=== PATIENT | female | born 1970 | race Caucasian/White ===

== ENCOUNTER 2016-06-11 03:02 | Emergency (ER) | payer OTHER ==
[~2016-06-11] VITALS: Ht 167.6 cm; Wt 163.6 kg
[~2016-06-11 03:02] MED LIST: AMOX-366 PO; CLIN-78 PO; HYDR-4003 PO; LOPE2TAB32 PO; ONDA8TAB10 PO; ONDA8TAB7 PO; Oxycodone/Acetaminophen PO; SULF1TAB7 PO
[2016-06-11 03:07] VITALS: BP 133/90; PULSE 65; RESP 16; O2SAT 96
--- NOTE | 2016-06-11 03:24 | ED.REPORT ---
HPI-General Illness Date of Service Jun 11, 2016 ED Provider: Landry Richards MD Patient is a 45 year old female who was recently in [place] and diagnosed only clinically with Typhoid fever who presents to the ED complaining of ongoing fever, cough, and vomiting that began on May 28. Patient reports ongoing high fevers, accompanied by chills and diaphoresis. She takes Ibuprofen every 6 hours for her fever. The patient states that her symptoms started with a fever, cough, and sore throat. Patient reports a productive cough with white sputum. This was followed by diarrhea and vomiting. The patient states that she was originally started on malaria medications, but was later informed that she actually had Typhoid fever and was started on different medications. Patient was seen at a clinic in [place], who treated her based on her symptoms. She did not have any blood cultures or test to prove what she has. The patient reports ongoing symptoms, with the exception of diarrhea which is now resolved. [place] [facility] She did not notice any mosquito bites. Patient states that at one point she boiled tap water for tea and she is concerned that is where she got Typhoid from. The patient did not have malaria prophylaxis prior to her trip, rationalizing that she had been there many times. Nursing Notes Stated Complaint: HISTORY OF TYPHOID FEVER Chief Complaint: General Complaint Nursing Notes Reviewed: Yes Allergies: Coded Allergies: cephalexin (Verified Allergy, Severe, Rash, 06/11/16) Scheduled Amoxicillin/Clav K 875-125 mg (Augmentin 875-125 mg) 1 Each Tablet 1 EACH PO BID Clindamycin (Clindamycin) 300 Mg Capsule 300 MG PO QID Doxycycline Monohyd (Doxycycline Monohyd) 100 Mg Tablet 100 MG PO BID Sulfamethoxazole/Trimeth 800-160 mg (Bactrim DS) 1 Each Tablet 1 TABLET PO BID Scheduled PRN ([Oxycodone/Acetaminophen]) 1 TAB TABLET 1-2 TAB PO Q6H PRN PRN For Pain Hydrocodone-Acetaminophen 5-325 mg (Hydrocodone-Acetaminophen 5-325 mg) 1 Each Tablet 1-2 TABLET PO Q4H PRN PRN For Pain Loperamide (Loperamide) 2 Mg Tablet 2 MG PO Q4H PRN PRN For Diarrhea or Loose Stool Take one tablet after each episode of diarrhea up to 6 tabs and 24 Ondansetron ODT (Zofran ODT) 8 Mg Tablet 8 MG PO Q4H PRN PRN For Nausea Ondansetron ODT (Ondansetron ODT) 8 Mg Tab.rapdis 8 MG PO Q4H PRN PRN For Nausea General Time Seen by MD: 03:24 Chief Complaint Cough, Fever, Other (possible Typhoid) Hx Obtained From: Patient Arrived By: Walk-in Sudden in Onset?: No Onset Occurred: More than a week ago... (2 weeks) Symptom Duration: Since onset Severity: Maximum: No pain Recent Healthcare: Recent doctor visit Similar Sx Previous: No Past Medical History Past Medical History Notes: Recent travel to [facility] (May 2016) - possible Typhoid/Malaria Past Medical History kidney stones UTIs sleep apnea pancreatitis Past Surgical History Reports: , Cholecystectomy Smoking History Never Smoker Social History Other Social History: Good social support, , Local resident Ambulatory Status Independent Review of Systems Full Review of Systems Constitutional: Reports: Chills, Fever Ears / Nose / Throat: Reports: Sore throat Respiratory: Reports: Non-productive cough, Prod cough, white GI: Reports: Diarrhea, Nausea, Vomiting Skin: Reports Diaphoresis Complete sys rev & neg: except as marked. Physical Exam Vital Signs Vital Signs Date Time Temp Pulse Resp B/P Pulse Ox O2 Delivery O2 Flow Rate FiO2 06/11/16 06:59 36.5 56 16 130/79 94 Room Air 06/11/16 03:07 36.3 65 16 133/90 96 Room Air Initial VS: Reviewed Extremities: Vascular intact, Neuro intact Neurologic: Alert, Oriented, Nonfocal Psychiatric: Mood/affect normal, Behavior normal, Normal thought content General/Constitutional: Awake, Alert, No acute distress Appearance / Presentation: Positive: Obese, morbidly Head / Eyes: Atraumatic, Normocephalic, PERRL ENT: Airway patent Neck: Supple, Full range of motion Respiratory / Chest: Breath sounds NL, Breath sounds = bilat, No respiratory distress, No rales, No rhonchi, No wheezing Cardiovascular: Heart rate NL, Regular rhythm, Heart sounds NL, No murmurs Abdomen: Soft, Non-tender Skin: No rash, Warm Color / Condition: Positive: Diaphoresis present Interpretation & Diagnostics Lab Results Interpretation Result Diagram: 06/11/16 0355 06/11/16 0355 Test 06/11/16 03:55 06/11/16 04:09 06/11/16 04:27 White Blood Count 3.6th/mm3 (3.8-10.1) Red Blood Count 4.69mil/mm3 (3.90-5.20) Hemoglobin 13.5g/dL (12.0-15.6) Hematocrit 39.8% (35.0-46.0) Mean Corpuscular Volume 84.9fL (81-100) Mean Corpuscular Hemoglobin 28.8pg (27.0-35.0) Mean Corpuscular Hemoglobin Concent 33.9% (32.0-37.0) Red Cell Distribution Width 14.5% (12.3-15.4) Platelet Count 162bil/L (150-400) Neutrophils (%) (Auto) 41.3% (40-74) Lymphocytes (%) (Auto) 41.0% (14-46) Monocytes (%) (Auto) 13.2% (4-12) Eosinophils (%) (Auto) 2.8% (0-5) Basophils (%) (Auto) 1.7% (0-3) Prothrombin Time 10.7sec (8.1-12.5) Prothromb Time International Ratio 1.00ratio Activated Partial Thromboplast Time 21.7sec (22.8-33.0) Sodium Level 141mEq/L (134-144) Potassium Level 3.6mEq/L (3.5-5.2) Chloride Level 101mEq/L (97-108) Carbon Dioxide Level 24mmol/L (18-29) Blood Urea Nitrogen 7mg/dL (6-24) Creatinine 0.61mg/dL (0.57-1.00) Estimat Glomerular Filtration Rate 151mL/min (>59) Glucose Level 108mg/dL (60-99) Calcium Level 8.7mg/dL (8.5-10.1) Magnesium Level 1.8mg/dL (1.6-2.6) Total Bilirubin 0.5mg/dL (0.0-1.2) Aspartate Amino Transf (AST/SGOT) 79U/L (0-50) Alanine Aminotransferase (ALT/SGPT) 77U/L (0-32) Alkaline Phosphatase 60U/L (25-150) Pro-B-Type Natriuretic Peptide 61.60pg/mL (0-249) Total Protein 7.4g/dL (6.4-8.4) Albumin 3.5g/dL (3.4-5.0) Procalcitonin 0.08ng/mL (0.00-0.08) Lactic Acid Level 1.2mmol/L (0.4-2.0) Urine Color Dark yellow (YELLOW) Urine Appearance Slightly cloudy Urine pH 6.0 (5.0-8.0) Urine Specific Silvis 1.020 (1.003-1.035) Urine Protein Negativemg/dL (NEG,TRACE) Urine Glucose (UA) Negativemg/dL (NEGATIVE) Urine Ketones Tracemg/dL (NEGATIVE) Urine Occult Blood Small (NEGATIVE) Urine Nitrite Negative (NEGATIVE) Urine Bilirubin Negative (NEGATIVE) Urine Urobilinogen Normalmg/dL (NORMAL) Urine Leukocyte Esterase Moderate (NEGATIVE) Urine RBC 3-10/hpf (0-2) Urine WBC >50/hpf (0-5) Urine Epithelial Cells Many/hpf (NONE-MOD) Urine Crystals None seen (NONE SEEN) Urine Bacteria None/hpf (NONE-FEW) Urine Hyaline Casts None/lpf (NONE) Urine Granular Casts None seen (NONE SEEN) Urine Waxy Casts None seen (NONE SEEN) Urine Red Blood Cell Casts None seen (NONE SEEN) Urine White Blood Cell Casts None seen (NONE SEEN) Urine Mucus Present (None Seen) Urine Trichomonas None seen (NONE SEEN) Urine Yeast None (NONE SEEN) Urine Culture Reflexed Indicated X-Ray Chest Interpretation Chest Xray Interpretation: Impression: No acute cardiopulmonary process. View: AP & lat Interpretation / Wet Read by: Wet read ED physician Re-Eval/Medical Decision Med Decision/Clinical Course 45-year-old with a fever and UTI as well as cough symptoms, presents with reasonable concerns for tropical diseases in the setting of a recent return from [place]. Malaria after her visit to [facility] is relatively unlikely, but typhoid certainly was a possibility. She was unfortunately treated with a plethora of brief courses of antibiotics, rendering diagnosis somewhat difficult. Stools were obtained while here, and submitted for a PCR panel as well as ova and parasites. Initial malaria testing is negative. A malaria smear is pending this morning. Blood cultures are pending. Urinalysis is grossly positive and urine cultures pending. Chest x-ray is negative. She carries a history of some reaction to cephalexin, but actually has taken cephalexin given her by the [place] and [facility] doctor, without apparent reaction. She prefers not to have cephalexin despite the fact that she is probably not allergic. We will begin her alternatively on doxycycline twice a day. Above evaluation is pending. Follow up with PCP. Prompt return if worse. Source of Hx: Old records Time of Eval: 06:35 Patient Status: Condition improved Re-Evaluation/Progress Note: Rechecked the patient. Her chest x-ray was negative. Discussed her lab results, some results are pending still. Her UA was positive for a UTI. Patient provided a stool sample. Patient understands and agrees with the plan to be discharged home. Discharge instructions and follow-up discussed. All questions were addressed. Return to the ED warnings given. Counseled Regarding: Diagnosis, Lab results, Need for follow-up, When/why to return to ED Discharge & Departure Primary Impression: UTI (urinary tract infection) Urinary tract infection type: acute cystitis Hematuria presence: with hematuria Qualified Code: N30.01 - Acute cystitis with hematuria Additional Impression: Fever Fever type: unspecified Qualified Code: R50.9 - Fever, unspecified Disposition: Home Discharge Condition All VS Reviewed: Yes Condition: Stable Patient Instructions: Urinary Tract Infection in Women (ED) Additional Instructions: Begin doxycycline twice daily for ten days. Follow-up with your doctor in the office. Return if you have persistent fevers despite treatment. We have testing pending for malaria, typhoid, and tuberculosis. The initial malaria testing is negative. Referrals: Ileana Whiting CNM (PCP) Carolyn Attestation Portions of this note were transcribed by Corinne Be. I, Dr. Richards personally performed the history, physical exam and medical decision-making; I reviewed and confirmed the accuracy of the information in the transcribed note. Signed by: Carolyn Arizmendi, 06/11/2016 0645 copies to: Ileana Whiting CNM, Christopher W MD Jun 11, 2016 03:24 Corinne Be Jun 11, 2016 03:42
[2016-06-11 04:19] LABS: BASOPHILS % (AUTO) 1.7 % (0-3); EOSINOPHILS % (AUTO) 2.8 % (0-5); MONOCYTES % (AUTO) 13.2 % (4-12); Mean Corpuscular Hemoglobin 28.8 pg (27.0-35.0); Mean Corpuscular Volume 84.9 fL (81-100); NEUTROPHILS % (AUTO) 41.3 % (40-74)
[2016-06-11 05:05] LABS: Platelet Count 162 bil/L (150-400)
[2016-06-11 05:13] LABS: Magnesium 1.8 mg/dL (1.6-2.6)
[2016-06-11 06:16] LABS: APPEARANCE,URINE SLIGHTLY CLOUDY (CLEAR,HAZY); COLOR,URINE DARK YELLOW (YELLOW); OCCULT BLOOD,URINE SMALL (NEGATIVE); UROBILINOGEN,URINE NORMAL (NORMAL)
[2016-06-11] MEDS ORDERED: DOXY-232 PO (06:42)
[2016-06-11 06:59] VITALS: BP 130/79; PULSE 56; RESP 16; O2SAT 94
--- NOTE | 2016-06-11 08:58 | DRSVH ---
PROCEDURE: X-RAY CHEST, TWO VIEWS ([id number]) INDICATIONS: cough, travel to [place] TECHNIQUE: 2 views of the chest were acquired. COMPARISON: [facility], , CHEST 2VW, 09/06/2013, 9:49. FINDINGS: Surgical changes and devices: None. Lungs and pleura: No pleural effusions or pneumothorax. Lungs are clear. Mediastinum: Mediastinal contours are normal. Heart size is normal. Bones and chest wall: No suspicious bony abnormalities. Soft tissues appear unremarkable. IMPRESSION: No acute cardiopulmonary disease process. Dictated by: Winsome Thompson MD, PhD on 06/11/2016 at 8:55 Approved by: Winsome Thompson MD, PhD on 06/11/2016 at 8:56
== END 2016-06-11 06:58 | disposition home or self-care (01) ==
LOC: SED 03:02
DX: N30.01 Acute cystitis with hematuria (principal); R05 Cough; Z87.440 Personal history of urinary (tract) infections; Z87.442 Personal history of urinary calculi; Z88.1 Allergy status to other antibiotic agents

== ENCOUNTER 2016-06-15 18:17 | Emergency (ER) | payer OTHER ==
[~2016-06-15] VITALS: Ht 167.6 cm; Wt 163.6 kg
[~2016-06-15 18:17] MED LIST changes: +DOXY-232 PO
[2016-06-15 18:34] VITALS: BP 137/90; PULSE 90; RESP 20; O2SAT 96
--- NOTE | 2016-06-15 18:50 | ED.REPORT ---
HPI-General Illness Date of Service Jun 15, 2016 ED Provider: Mart Kenny MD 45 year old female presents to the ED due to flu like symptoms for 3 weeks. Symptoms started as sore throat and progressed to dysuria, persistent non- productive cough, nausea, vomiting, fatigue and fever. Pt was seen in the ER 06/11. Pt now has 8/10 neck pain and a headache. Pt has been using ibuprofen with minimal relief. Additionally the patient reports a rash to her lower abd with itching. See note from 06/11/16. Nursing Notes Stated Complaint: SORE THROAT Chief Complaint: FLU/Cold Symptoms Nursing Notes Reviewed: Yes Allergies: Coded Allergies: cephalexin (Verified Allergy, Severe, Rash, 06/11/16) Scheduled Amoxicillin/Clav K 875-125 mg (Augmentin 875-125 mg) 1 Each Tablet 1 EACH PO BID Clindamycin (Clindamycin) 300 Mg Capsule 300 MG PO QID Doxycycline Monohyd (Doxycycline Monohyd) 100 Mg Tablet 100 MG PO BID Sulfamethoxazole/Trimeth 800-160 mg (Bactrim DS) 1 Each Tablet 1 TABLET PO BID Scheduled PRN ([Oxycodone/Acetaminophen]) 1 TAB TABLET 1-2 TAB PO Q6H PRN PRN For Pain Hydrocodone-Acetaminophen 5-325 mg (Hydrocodone-Acetaminophen 5-325 mg) 1 Each Tablet 1-2 TABLET PO Q4H PRN PRN For Pain Loperamide (Loperamide) 2 Mg Tablet 2 MG PO Q4H PRN PRN For Diarrhea or Loose Stool Take one tablet after each episode of diarrhea up to 6 tabs and 24 Ondansetron ODT (Zofran ODT) 8 Mg Tablet 8 MG PO Q4H PRN PRN For Nausea Ondansetron ODT (Ondansetron ODT) 8 Mg Tab.rapdis 8 MG PO Q4H PRN PRN For Nausea General Time Seen by MD: 18:48 Chief Complaint Multip medical complaints Hx Obtained From: Patient Arrived By: Walk-in Sudden in Onset?: No Onset Occurred: More than a week ago... (3 weeks) Symptom Duration: Since onset Location: : Head: Neck Quality: Painful Severity: Current: Moderate Associated with: Reports: Fever, Headache Past Medical History Past Medical History Notes: Recent travel to [place] (May 2016) - possible Typhoid/Malaria Past Medical History kidney stones UTIs sleep apnea pancreatitis Past Surgical History Reports: , Cholecystectomy Smoking History Never Smoker Social History Other Social History: Good social support, , Local resident Ambulatory Status Independent Review of Systems Full Review of Systems Constitutional: Reports: Fatigue, Fever Ears / Nose / Throat: Reports: Sore throat Respiratory: Reports: Non-productive cough, Denies: Shortness of breath GI: Reports: Nausea, Vomiting Female: Reports: Dysuria Musculoskeletal: Reports: Myalgia, Neck pain Skin: Reports Itching, Reports Rash Neurologic: Reports: Headache Complete sys rev & neg: except as marked. Physical Exam Vital Signs Vital Signs Date Time Temp Pulse Resp B/P Pulse Ox O2 Delivery O2 Flow Rate FiO2 06/15/16 20:22 36.7 92 18 132/90 95 Room Air 06/15/16 18:34 36.3 90 20 137/90 96 Room Air Initial VS: Reviewed General/Constitutional: Awake, Alert, Cooperative Head / Eyes: Atraumatic, Normocephalic, PERRL, EOMI ENT: Airway patent, Mucous membranes moist, Pharynx NL Neck: Atraumatic, Supple, Full range of motion Tenderness about trapezius bilat. Respiratory / Chest: Breath sounds NL, Breath sounds = bilat, No respiratory distress, No rales, No rhonchi, No wheezing dry non productive cough Cardiovascular: Heart rate NL, Regular rhythm, Heart sounds NL, No gallop, No murmurs, No rubs, Cap refill not delayed, Peripheral circulation NL Abdomen: Soft, Non-tender, No distention Erythema about lower groin pannus with some overlying excoriations. Skin: Warm, Dry Neurologic: Oriented X3, Speech NL Psychiatric: Affect NL, Mood NL, Cognitive function NL Interpretation & Diagnostics Lab Results Interpretation Test 06/15/16 19:49 Hold Serra Top Tube Received (Received) Re-Eval/Medical Decision Med Decision/Clinical Course 45 year old female presents to the ED due to flu like symptoms for 3 weeks. Symptoms started as sore throat and progressed to dysuria, persistent nonproductive cough, nausea, vomiting, fatigue and fever. She has also had some generalized soreness about the lateral aspect of her neck. The patient was in [place] 05/26/16 to 06/10/16. There she was clinically diagnosed with typhoid fever and has been treated with several courses of antibiotics symptoms have not improved. She has had no sick contacts that she is aware of. She was seen here 06/11/16 and clinically diagnosed with urinary tract infection and was prescribed doxycycline however symptoms have not gotten better. Here in the emergency department she is afebrile with stable vital signs. She has supple neck with full range of motion, clear lungs and head to toe examination which is essentially unremarkable. She is nontoxic in appearance. She has no meningismus. She had an extensive workup here just several days ago (06/11/16) which was reviewed as below: Chest x-ray negative. UA consistent with UTI and pt was prescribed doxycycline. (Cultures from that urinalysis is grown out no single organism and were consistent with a contaminated specimen) Stool PCR negative. Blood cultures with no growth to date. Sputum with no acid fast bacilli TB testing negative. Malaria peripheral smear pending Malaria antigen assay negative. Respiration PCR nasopharyngeal negative. Labs from 06/11/16: CBC unremarkable CMP mildly elevated transaminases- otherwise unremarkable coag studies normal Cause of the patient's presentation is unclear. She is quite well-appearing. Considered sexually transmitted infection such as HIV however she has had no high risk for actual behavior. Discussed with Dr. Subramanian infectious disease. Reviewed her extensive workup thus far. He recommends that we sent blood for dengue fever testing. No further recommendations at this time. He will follow up with her in his clinic. Considered meningitis but this seems quite unlikely. She has supple neck with full range of motion and no meningeal findings. I do not feel that lumbar puncture is indicated. Discussed workup thus far with the patient and findings above. She will call tomorrow to arrange for follow-up with Dr. Subramanian. RETURN precautions were reviewed detail she was discharged in good condition. She will continue the antibiotics previously prescribed a white suspicion for urinary tract infection is relatively low given that urine did not grow any single organism. Source of Hx: Old records Time of Eval: 19:33 Re-Evaluation/Progress Note: Labs drawn. Discussed plan for discharge and follow up with Dr. Subramanian. All questions addressed. Consultation : Referral / Consult Name: Ruiz Subramanian MD Call Returned at: 19:29 Note: Infectious disease- revieed workup. request dengue fever testing and discharge. Counseled Regarding: Diagnosis, Lab results, Need for follow-up, When/why to return to ED Discharge & Departure Primary Impression: Fever Fever type: unspecified Qualified Code: R50.9 - Fever, unspecified Additional Impressions: Myalgia Body aches Cough Dysuria Generalized weakness Fatigue Fatigue type: unspecified Qualified Code: R53.83 - Other fatigue Disposition: Home Discharge Condition All VS Reviewed: Yes Condition: Improved Additional Instructions: Thank you for seeking care at [facility] emergency room. Our primary goal today in the ED was to evaluate you for any life-threatening conditions. Your evaluation was reassuring. We are testing for Dengue fever. You can use hydrocortisone cream for your rash. The infectious disease doctor can see you next week in clinic if your symptoms are persisting. Call the office tomorrow to schedule an appointment. Return to the ER if worse. Thank you for letting us partake in your care today. Referrals: Ileana Whiting CNM (PCP) Ruiz Subramanian MD Scribe Attestation Portions of this note were transcribed by Keshia Caicedo. I, (Dr. Kenny) personally performed the history, physical exam and medical decision-making; I reviewed and confirmed the accuracy of the information in the transcribed note. Signed by: Keshia Caicedo. Davidibe, 06/15/2016, 2206 copies to: Ileana Whiting CNM; Ruiz Subramanian MD, Beck O MD Jun 15, 2016 18:50 Keshia Caicedo Jun 15, 2016 19:28
[2016-06-15 20:22] VITALS: BP 132/90; PULSE 92; RESP 18; O2SAT 95
== END 2016-06-15 20:24 | disposition home or self-care (01) ==
LOC: SED 18:17
DX: R50.9 Fever, unspecified (principal); M79.1 Myalgia; R53.83 Other fatigue; R53.1 Weakness; R30.0 Dysuria; R05 Cough; Z87.440 Personal history of urinary (tract) infections; Z90.49 Acquired absence of other specified parts of digestive tract; Z88.1 Allergy status to other antibiotic agents

== ENCOUNTER 2016-06-20 20:09 | Emergency (ER) | payer OTHER ==
[2016-06-20 20:22] VITALS: BP 139/77; PULSE 61; RESP 16; O2SAT 96
[2016-06-20 21:23] LABS: BASOPHILS % (AUTO) 0.7 % (0-3); EOSINOPHILS % (AUTO) 3.7 % (0-5); MONOCYTES % (AUTO) 12.9 % (4-12); Mean Corpuscular Hemoglobin 28.3 pg (27.0-35.0); Mean Corpuscular Volume 87.1 fL (81-100); NEUTROPHILS % (AUTO) 41.7 % (40-74); Platelet Count 229 bil/L (150-400)
[2016-06-20 21:36] LABS: INR 0.94 ratio
--- NOTE | 2016-06-20 22:58 | ED.REPORT ---
HPI-Abd Pain F 40 and Over Date of Service Jun 20, 2016 ED Provider: Landry Richards MD History of Present Illness: Patient is a 45 y.o. F with past medical history of kidney stones, UTIs, sleep apnea, pancreatitis, reported dengue fever. Patient noticed blood in stool today x2, associated with nausea. Taking antibiotics currently for UTI finishes on 06/23/16. Pain described as sharp pain intermittant, lower abdomen across middle, made wosre by nothing, made better by nothing. Never happend before. Blood described brightred on toliet paper, not bowel, change in stool color described as dark serra, without blood in stool. Denies diarrhea, pain with BM, dysuria, constipation, pain with wipping, fever, chills, vision, no other areas of bleeding. Nursing Notes Stated Complaint: LIGHT HEADED/RECTAL BLEEDING Chief Complaint: Female Abdominal Pain Allergies: Coded Allergies: cephalexin (Verified Allergy, Severe, Rash, 06/20/16) Scheduled Amoxicillin/Clav K 875-125 mg (Augmentin 875-125 mg) 1 Each Tablet 1 EACH PO BID Clindamycin (Clindamycin) 300 Mg Capsule 300 MG PO QID Doxycycline Monohyd (Doxycycline Monohyd) 100 Mg Tablet 100 MG PO BID Sulfamethoxazole/Trimeth 800-160 mg (Bactrim DS) 1 Each Tablet 1 TABLET PO BID Scheduled PRN ([Oxycodone/Acetaminophen]) 1 TAB TABLET 1-2 TAB PO Q6H PRN PRN For Pain Hydrocodone-Acetaminophen 5-325 mg (Hydrocodone-Acetaminophen 5-325 mg) 1 Each Tablet 1-2 TABLET PO Q4H PRN PRN For Pain Loperamide (Loperamide) 2 Mg Tablet 2 MG PO Q4H PRN PRN For Diarrhea or Loose Stool Take one tablet after each episode of diarrhea up to 6 tabs and 24 Ondansetron ODT (Zofran ODT) 8 Mg Tablet 8 MG PO Q4H PRN PRN For Nausea Ondansetron ODT (Ondansetron ODT) 8 Mg Tab.rapdis 8 MG PO Q4H PRN PRN For Nausea General Time Seen by MD: 10:00 Chief Complaint Abdominal pain, Rectal bleeding Arrived By: Walk-in Sudden in Onset?: Yes Onset Occurred: 1 - 4 hours ago Context of Onset: Other (with bowel movement) Symptom Duration: Intermittent Location: : Abdomen lower Severity: Current: Pain level 4 out of 10 Severity: Maximum: Pain level 4 out of 10 Associated with: Reports: Nausea Past Medical History Past Medical History Notes: Recent travel to [place] (May 2016) - possible Typhoid/Malaria Past Medical History kidney stones UTIs sleep apnea pancreatitis Past Surgical History Reports: , Cholecystectomy Smoking History Never Smoker Social History Other Social History: Good social support, , Local resident Ambulatory Status Independent Review of Systems Basic Review of Systems Eyes: Vision NL, No discharge ENT: Hearing NL, No pain, No nasal congestion, No pharyngeal pain Hematologic: No bleeding, No bruising Endocrine: No cold intolerance, No heat intolerance, No weight gain, No weight loss Skin: No bruising, No rash, No itch Constitutional: Denies: Chills, Fatigue, Fever, Weakness - generalized Respiratory: Denies: Dyspnea on exertion, Hemoptysis Cardiovascular: Denies: Chest pain, Dyspnea on exertion, Edema GI: Reports: Abdominal pain, Rectal pain, Denies: Bloody/tarry stool, Diarrhea Complete sys rev & neg: except as marked. Physical Exam Vital Signs Vital Signs (First) Date Time Temp Pulse Resp B/P Pulse Ox O2 Delivery O2 Flow Rate FiO2 06/20/16 20:22 36.6 61 16 139/77 96 Room Air Initial VS: Reviewed Head / Eyes: Atraumatic, Normocephalic, PERRL ENT: Mucous membranes moist, Conjunctiva normal, No scleral icterus Neck: Supple, Non-tender, Full range of motion Lymphatic: No lymphadenopathy Extremities: Vascular intact, Neuro intact, No swelling, No tenderness Skin: Warm, Dry, No cyanosis General/Constitutional: Awake, Alert Respiratory / Chest: Breath sounds NL, Breath sounds = bilat, No respiratory distress, No rales, No rhonchi, No wheezing, No stridor Cardiovascular: Heart rate NL, Regular rhythm, Heart sounds NL, Peripheral circulation NL Abdomen: Soft, McBurney's non-tender, No guarding, No rebound, BS normoactive, No distention, No hernia, No palpable mass, No pulsatile mass Tenderness/Guarding/Rebound: Positive: Tender LLQ... (Mild), Tender RLQ... ( Mild) Rectal for Blood: Positive: Blood, grossly present, Negative: Melena present Rectum / Perineum Abnl: Positive: Hemorrhoid external Interpretation & Diagnostics Lab Results Interpretation Result Diagram: 06/20/16211406/20/162114 Test 06/20/16 21:15 White Blood Count 5.7th/mm3 (3.8-10.1) Red Blood Count 4.66mil/mm3 (3.90-5.20) Hemoglobin 13.2g/dL (12.0-15.6) Hematocrit 40.6% (35.0-46.0) Mean Corpuscular Volume 87.1fL (81-100) Mean Corpuscular Hemoglobin 28.3pg (27.0-35.0) Mean Corpuscular Hemoglobin Concent 32.5% (32.0-37.0) Red Cell Distribution Width 14.8% (12.3-15.4) Platelet Count 229bil/L (150-400) Neutrophils (%) (Auto) 41.7% (40-74) Lymphocytes (%) (Auto) 40.8% (14-46) Monocytes (%) (Auto) 12.9% (4-12) Eosinophils (%) (Auto) 3.7% (0-5) Basophils (%) (Auto) 0.7% (0-3) Hematology Comments Rbc Prothrombin Time 10.0sec (8.1-12.5) Prothromb Time International Ratio 0.94ratio Sodium Level 140mEq/L (134-144) Potassium Level 4.8mEq/L (3.5-5.2) Chloride Level 102mEq/L (97-108) Carbon Dioxide Level 26mmol/L (18-29) Blood Urea Nitrogen 16mg/dL (6-24) Creatinine 0.62mg/dL (0.57-1.00) Estimat Glomerular Filtration Rate 148mL/min (>59) Glucose Level 104mg/dL (60-99) Calcium Level 8.9mg/dL (8.5-10.1) Total Bilirubin 0.2mg/dL (0.0-1.2) Aspartate Amino Transf (AST/SGOT) 32U/L (0-50) Alanine Aminotransferase (ALT/SGPT) 40U/L (0-32) Alkaline Phosphatase 53U/L (25-150) Total Protein 6.4g/dL (6.4-8.4) Albumin 3.5g/dL (3.4-5.0) Hold Serra Top Tube Received (Received) Re-Eval/Medical Decision Med Decision/Clinical Course Reported new onset bright red blood on toilet paper x 2 today. Likely due to hemorrhoid DDx consider hemorrhagic infectious diarrhea EHEC, typhoid, campylobacter, shigella, C. Diff colitis, Vibrio. IBD. Stool testing will need to await clearance from antibiotics. Advised to discontinue her Cipro after the ten day course which is now. No evidence of malaria. Review of the dengue serology shows it was actually negative and not positive. Discharged in stable condition Patient still currently on antibiotic therapy for UTI. Will ev need follow up stool studies once off of antibiotics as outpatient. Discharge & Departure Shift Change Sign-Out Response to Therapy: Unchanged Primary Impression: Hemorrhoids Additional Impressions: Blood per rectum Fever Disposition: Home Discharge Condition All VS Reviewed: Yes Condition: Stable Additional Instructions: During you visit to [facility] Emergency Department we obtained blood work for infectious markers, hemoglobin levels, and electrolytes. You likely have hemorrhoids, however, you will need close outpatient follow up once of antibiotics for stool studies to rule out any inflammatory causes of diarrhea and blood per rectum. All your lab values were within normal limits and your imaging showed no acute processes or abnormalities. Your vital signs were stable and safe for discharge. Do not hesitate to call emergency services or your primary care physician if you experience any of the following. - High unrelenting fevers. - Uncontrolled vomiting. - Severe hypertension. - Syncope or loss of consciousness. - Chest pain or severe shortness of breath. Follow up with your primary care physician in 1-2 weeks time following your emergency department visit for medication checks and general well-being. Referrals: NOPCP (PCP) Symone Wilkinson ND Attending Statement As attending of record for this patient, I conducted an independent history and physical examination, and I agree with the resident note as documented above, and as amended. copies to: Symone Wilkinson ND, AARON J DO Jun 20, 2016 22:15 Landry Richards MD Jun 21, 2016 06:11
[2016-06-20 23:50] VITALS: BP 128/80; PULSE 61; RESP 16; O2SAT 97
== END 2016-06-20 23:52 | disposition home or self-care (01) ==
LOC: SED 20:09
DX: K64.4 Residual hemorrhoidal skin tags (principal); K92.1 Melena; R50.9 Fever, unspecified; R11.0 Nausea; R10.31 Right lower quadrant pain; R10.32 Left lower quadrant pain; Z88.1 Allergy status to other antibiotic agents